=== PATIENT | female | born 1955 | race Two or more races ===

== ENCOUNTER 2023-10-04 17:26 | Inpatient (IN) | payer OTHER ==
[~2023-10-04] VITALS: Ht 160 cm; Wt 81.6 kg
[~2023-10-04 17:26] MED LIST: AVALIDE 300-251 TAB PO; CIPRO500 MG PO; MEFOXIN 1GM M1000 MG IV; PROTONIX40 MG PO; VISTARIL25 MG PO; ZANTAC300 MG PO
[2023-10-04] MEDS ORDERED: AMLODIPINE BESYL5 MG PO (17:40)
[2023-10-04] MEDS ORDERED: IRBESARTAN-HCT1 EAC1 PO (17:40)
[2023-10-04] MEDS ORDERED: TRAMADOL HCL50 MG PO (17:40)
[2023-10-04] MEDS ORDERED: GABAPENTIN600 MG PO (17:40)
[2023-10-04] MEDS ORDERED: GLIPIZIDE XL10 MG PO (17:41)
[2023-10-04] MEDS ORDERED: CLOPIDOGREL300 MG PO (17:41)
[2023-10-04] MEDS ORDERED: GLUMETZA1000 MG PO (17:42)
--- NOTE | 2023-10-04 17:43 | NUR ---
PTE ALERTA Y ORIENTADO POR ANALI ESFERAS CON BUEN PATRON RESPIRATORIO REFIERE QUE VIENE POR REFERIDO PARA CONSULTA CON DR.LOPEZ MORGAN PARA EDMAR ULCERA EN ULCERA DAVID LADO DERECHO.
[2023-10-04] MEDS ORDERED: Dextrose ORAL GEL 37.5GM GEL PO ONE (17:50)
[2023-10-04] MEDS ORDERED: VANCOMYCIN HCL 1,000 MG VIAL ONE (18:36)
--- NOTE | 2023-10-04 18:39 | NUR ---
SE ORIENTA A PACIENTE SOBRE [place] MEDICO, REFIERE ENTENDER. SE REALIZAN MUESTRAS DE LABORATORIO BAJO MEDIDAS ASEPTICAS. SE ADMINISTRA IV'S Y MEDICAMENTOS CARMENZA ORDEN MEDICA. SE COORDINA BERTHA Earl. PACIENTE MANEJADA POR MR.DEL GUDINO. SE MANTIENE EN OBSERVACION POR CAMBIOS.
[2023-10-04] MEDS ORDERED: 0.9 % SODIUM CHLORIDE 1,000 ML IV SCH ×2 (18:45→22:00)
[2023-10-04] MEDS ORDERED: INSULIN LISPRO 1,000 UNIT/10 ML UNITS SUBCUTANEO PRN ×2 (18:45→21:45)
[2023-10-04] MEDS ORDERED: VANCOMYCIN HCL 1,000 MG VIAL IV ONE (18:45)
[2023-10-04] MEDS ORDERED: DEXTROSE 50 % IN WATER 0.5 G/ML DISP.SYRIN IV PRN ×2 (18:45→21:45)
[2023-10-04 18:56] LABS: HEMATOCRIT 30.6 % (36.0-45.00); HEMOGLOBIN 10.2 g/dL (12.0-15.00); MEAN CELL VOLUME 88.5 fL (80.00-100.00); MEAN CORPUSCULAR HEMOGLOBIN 29.4 pg (27.00-32.0); MEAN CORPUSCULAR HGB CONC 33.2 g/dl (32.0-36.0); PLATELET COUNT 338 K/uL (150-450); RED BLOOD COUNT 3.46 M/uL (4.00-6.00); RED CELL DISTRIBUTION WIDTH 13.6 % (11.5-14.5)
[2023-10-04 19:14] LABS: ALBUMIN 3.5 gm/dL (3.4-5.0); BILIRUBIN TOTAL 0.5 mg/dL (0.3-1.2); CALCIUM 9.9 mg/dL (8.5-10.1); CREATININE SERUM 0.93 mg/dL (0.55-1.02); GFR 59.95; GLOBULINA 4.7 G/DL (2.4-3.5); POTASSIUM 4.11 mEq/L (3.5-5.1); TOTAL PROTEIN 8.2 gm/dL (6.4-8.2)
[2023-10-04 19:16] LABS: C-REACTIVE PROTEIN 5.45 MG/DL (0.00-0.29)
[2023-10-04 19:35] LABS: ERYTHROCYTE SEDIMENTATION RATE 90 mm/hr
[2023-10-04] MEDS ORDERED: KETOROLAC TROMETHAMINE 30 MG VIAL IV STA (20:06)
[2023-10-04] MEDS ORDERED: KETOROLAC TROMETHAMINE 30 MG VIAL ONE (20:08)
[2023-10-04] MEDS ORDERED: PIPERACILLIN/TAZOBACTAM SODIUM 3.375 GM in DEXTROSE 5 % IN WATER 100 ML IV SCH (21:37)
[2023-10-04] MEDS ORDERED: MEPERIDINE HCL/PF 25 MG/ML VIAL IM PRN (21:45)
[2023-10-04] MEDS ORDERED: ACETAMINOPHEN 500 MG GEL..CAP PO PRN (21:45)
[2023-10-05] MEDS ORDERED: PIPERACILLIN/TAZOBACTAM SODIUM 3.375 GM VIAL IV ONE ×2 (00:39→05:46)
[2023-10-05 01:35] VITALS: BP 157/83
[2023-10-05] MEDS ORDERED: INSULIN LISPRO 1,000 UNIT/10 ML UNITS SUBCUTANEO ONE ×2 (02:25→15:30)
[2023-10-05 02:51] LABS: INR 1.01; PARTIAL THROMBOPLASTIN TIME 31.3 SECONDS (22.0-34.0)
[2023-10-05 06:38] LABS: PH,URINE 5.5 (5.0-8.0); URINE APPEARANCE Cloudy; URINE BILIRRUBIN Negative (NEGATIVE); URINE BLOOD Negative; URINE COLOR Yellow; URINE KETONE Negative (NEGATIVE); URINE LEUKOCYTE Large; URINE NITRATE Negative; URINE PROTEIN Trace (NEGATIVE); URINE UROBILINOGEN 0.2 E.U./dl
[2023-10-05 06:42] LABS: URINE BACTERIA 692.9 uL (0.0-1933); URINE CAST 3.35 uL (0.0-1.40); URINE EPITHELIAL CELLS 43.9 uL (0.0-38.8); URINE RBC 2.2 uL (0.0-20.8); URINE WBC 461.1 uL (0.0-23.2)
[2023-10-05 07:15] LABS: URINE GLUCOSE 100 MG/DL (NEGATIVE)
[2023-10-05] MEDS ORDERED: VANCOMYCIN HCL 1,000 MG VIAL ONE (07:31)
[2023-10-05] MEDS ORDERED: ENOXAPARIN SODIUM 40 MG/0.4 ML SYRINGE SUBCUTANEO ONE (07:31)
[2023-10-05] MEDS ORDERED: FAMOTIDINE/PF 20 MG/2 ML VIAL ONE (07:32)
[2023-10-05 08:07] VITALS: BP 149/78; O2SAT 100
[2023-10-05] MEDS ORDERED: GABAPENTIN 600 MG TABLET PO SCH (09:00)
[2023-10-05] MEDS ORDERED: ATORVASTATIN CALCIUM 40 MG TABLET PO SCH (09:00)
[2023-10-05] MEDS ORDERED: IRBESARTAN 300 MG TABLET PO SCH (09:00)
[2023-10-05] MEDS ORDERED: ENOXAPARIN SODIUM 40 MG/0.4 ML SYRINGE SUBCUTANEO SCH (09:00)
[2023-10-05] MEDS ORDERED: VANCOMYCIN HCL 1,000 MG VIAL IV SCH ×2 (09:00→21:00)
[2023-10-05] MEDS ORDERED: HYDROCHLOROTHIAZIDE 12.5 MG CAPSULE PO SCH (09:00)
[2023-10-05] MEDS ORDERED: FAMOTIDINE/PF 20 MG in 0.9 % SODIUM CHLORIDE 8 ML IV PUSH SCH (09:00)
[2023-10-05 15:36] VITALS: BP 155/78; O2SAT 97
[2023-10-05] MEDS ORDERED: CEFEPIME HCL 2,000 MG VIAL IV SCH (17:00)
[2023-10-05] MEDS ORDERED: LACTOBACILLUS ACIDOPHILUS 1 CAP CAP PO SCH (17:00)
[2023-10-05 18:58] VITALS: BP 160/74; O2SAT 100
[2023-10-06] VITALS: BP 187/81
[2023-10-06 05:54] LABS: ALBUMIN 3.2 gm/dL (3.4-5.0); BILIRUBIN TOTAL 0.39 mg/dL (0.3-1.2); CALCIUM 9.3 mg/dL (8.5-10.1); CREATININE SERUM 0.84 mg/dL (0.55-1.02); GFR 67.42; GLOBULINA 3.7 G/DL (2.4-3.5); PHOSPHOROUS 3.1 mg/dL (2.5-4.9); POTASSIUM 4.9 mEq/L (3.5-5.1); TOTAL PROTEIN 6.9 gm/dL (6.4-8.2)
[2023-10-06 05:55] LABS: C-REACTIVE PROTEIN 6.02 MG/DL (0.00-0.29)
[2023-10-06 06:13] LABS: HEMATOCRIT 30.2 % (36.0-45.00); HEMOGLOBIN 9.9 g/dL (12.0-15.00); MEAN CORPUSCULAR HGB CONC 32.9 g/dl (32.0-36.0); PLATELET COUNT 326 K/uL (150-450); RED BLOOD COUNT 3.43 M/uL (4.00-6.00); RED CELL DISTRIBUTION WIDTH 13.5 % (11.5-14.5)
[2023-10-06 08:28] VITALS: BP 136/62
[2023-10-06] MEDS ORDERED: FAMOTIDINE/PF 20 MG/2 ML VIAL ONE (08:40)
[2023-10-06 18:28] VITALS: BP 160/85; O2SAT 97
[2023-10-07] MEDS ORDERED: MEPERIDINE HCL/PF 25 MG/ML VIAL IM PRN (00:15)
[2023-10-07 02:41] VITALS: BP 174/72; O2SAT 100
[2023-10-07 17:54] VITALS: BP 160/68; O2SAT 99
[2023-10-07] MEDS ORDERED: FAMOtidine 20 MG TABLET PO SCH (21:00)
[2023-10-08 02:30] VITALS: BP 137/55; O2SAT 97
[2023-10-08 07:53] LABS: HEMATOCRIT 28.6 % (36.0-45.00); HEMOGLOBIN 9.7 g/dL (12.0-15.00); MEAN CELL VOLUME 86.4 fL (80.00-100.00); MEAN CORPUSCULAR HEMOGLOBIN 29.2 pg (27.00-32.0); MEAN CORPUSCULAR HGB CONC 33.8 g/dl (32.0-36.0); PLATELET COUNT 306 K/uL (150-450); RED BLOOD COUNT 3.32 M/uL (4.00-6.00)
[2023-10-08 08:32] LABS: CALCIUM 9.4 mg/dL (8.5-10.1); CREATININE SERUM 0.79 mg/dL (0.55-1.02); GFR 72.37; POTASSIUM 4.81 mEq/L (3.5-5.1)
[2023-10-08 10:27] VITALS: BP 136/74
[2023-10-08 17:45] VITALS: BP 155/73; O2SAT 97
[2023-10-08] MEDS ORDERED: BROMPHENIRAM/PHENYLEPHRINE/DM 5 ML BLIST.PACK PO SCH (19:41)
[2023-10-08] MEDS ORDERED: BUDESONIDE 0.5 MG/2 ML AMPUL.NEB IH SCH (21:00)
[2023-10-08] MEDS ORDERED: IPRATROPIUM BROMIDE 0.5 MG/2.5 ML AMPUL.NEB IH ONE (21:53)
[2023-10-09] MEDS ORDERED: LEVALBUTEROL HCL 0.63 MG/3 ML SOLUTION IH SCH
[2023-10-09 02:30] VITALS: BP 144/70; O2SAT 18
[2023-10-09 10:12] VITALS: BP 154/74
[2023-10-09] MEDS ORDERED: CEFEPIME HCL 2,000 MG VIAL IV SCH (17:00)
[2023-10-09] MEDS ORDERED: SODIUM CHLORIDE 0.45 % 1,000 ML IV SCH (19:45)
== END 2023-10-10 09:04 | disposition designated cancer center or children's hospital (05) | DRG 623 ==
LOC: ER 17:27 → MEDJ 22:12 → SEC-K 22:12 → MEDJ 10-05 15:25
PROVIDERS: General Practice; Internal Medicine; Internal Medicine Infectious Disease; ADMIT Internal Medicine; ATTEND Internal Medicine
PROC: B54DZZZ Ultrasonography of Bilateral Lower Extremity Veins (ICD-10-PCS; 2023-10-04)
PROC: B44HZZZ Ultrasonography of Bilateral Lower Extremity Arteries (ICD-10-PCS; 2023-10-04)
PROC: 0JBQ0ZZ Excision of Right Foot Subcutaneous Tissue and Fascia, Open Approach (ICD-10-PCS; principal; 2023-10-05)
DX: E11.621 Type 2 diabetes mellitus with foot ulcer (principal); L03.115 Cellulitis of right lower limb; L97.413 Non-pressure chronic ulcer of right heel and midfoot with necrosis of muscle; I77.1 Stricture of artery; E11.628 Type 2 diabetes mellitus with other skin complications; B96.5 Pseudomonas (aeruginosa) (mallei) (pseudomallei) as the cause of diseases classified elsewhere; B96.89 Other specified bacterial agents as the cause of diseases classified elsewhere; Z79.4 Long term (current) use of insulin; E78.5 Hyperlipidemia, unspecified; I10 Essential (primary) hypertension; I87.2 Venous insufficiency (chronic) (peripheral); I73.9 Peripheral vascular disease, unspecified